=== PATIENT | female | born 1985 | race Hispanic/Latino ===

== ENCOUNTER 2016-08-02 19:06 | Emergency (ER) | payer OTHER ==
[~2016-08-02] VITALS: Ht 168.9 cm; Wt 79.5 kg
[~2016-08-02 19:06] MED LIST: OXYC-176 PO
[2016-08-02 19:13] VITALS: BP 126/81; PULSE 92; RESP 16; O2SAT 100
[2016-08-02] MEDS ORDERED: OXYC15TA45 PO (19:15)
[2016-08-02] MEDS ORDERED: 0.9% Sodium Chloride 1,000 ML IV ONE (19:39)
[2016-08-02 20:09] LABS: Mean Corpuscular Hemoglobin 30.3 pg (27.0-35.0); Mean Corpuscular Volume 90.5 fL (81-100)
--- NOTE | 2016-08-02 20:55 | ED.REPORT ---
HPI-Preg Under 20 Weeks Date of Service Aug 02, 2016 ED Provider: Alfredito Chaney MD A 31 year old A1 female with a history of elective six days ago presents to the ED complaining of abnormal vaginal bleeding. The bleeding has been occurring all day with abdominal cramping and progressively larger clots. She had been warned following her that she may experience vaginal bleeding, but was concerned because of the size of the clots. The pt was been 11 weeks at the time of her . Nursing Notes Stated Complaint: POST FEMALE SURGERY, BLEEDING AND PAIN Chief Complaint: Female Abdominal Pain Nursing Notes Reviewed: Yes Allergies: Coded Allergies: tramadol (Verified Allergy, Severe, Anaphylaxis, 08/02/16) Scheduled PRN Oxycodone (Roxicodone) 15 Mg Tablet 15 MG PO Q6H PRN PRN For Pain General Time Seen by Provider: 19:38 Chief Complaint Vaginal bleeding Hx Obtained From: Patient Arrived By: Walk-in Onset Occurred: 13 - 16 hours ago Symptom Duration: Since onset Recent Healthcare: Recent doctor visit, Recent hospitalization Similar Sx Previous: No Past Medical History Past Medical History A1 Past Surgical History 07/2016 Smoking History Unknown if Ever Smoker Social History Other Social History: Good social support Ambulatory Status Independent Review of Systems Constitutional: Denies: Fever Respiratory: Denies: Non-productive cough, Shortness of breath Cardiovascular: Denies: Chest pain GI: Reports: Abdominal pain, Denies: Diarrhea, Vomiting Female: Reports: Vaginal bleeding - abnl Musculoskeletal: Denies: Back pain, Neck pain Skin: Denies Rash Complete sys rev & neg: except as marked. Physical Exam Initial Vital Signs Vital Signs (First) Date Time Temp Pulse Resp B/P Pulse Ox O2 Delivery O2 Flow Rate FiO2 08/02/16 19:13 36.4 92 16 126/81 100 Room Air Initial VS: Reviewed General/Constitutional: Awake, Alert Abdomen: Atraumatic, Soft, Non-tender Female Genitourinary: Organ Pipe Finisher present, Atraumatic, External genitalia NL, Os closed dark brown blood in vaginal canal no clots : Exam deferred ENT: Atraumatic, Airway patent, Mucous membranes moist Respiratory / Chest: Atraumatic, Breath sounds NL, Breath sounds = bilat, No respiratory distress Cardiovascular: Heart rate NL, Regular rhythm, Heart sounds NL, No gallop, No murmurs, No rubs Back: Atraumatic, Full range of motion Neurologic: Oriented X3, Speech NL, No motor deficits, No sensory deficits Head / Eyes: Atraumatic, Normocephalic, PERRL, EOMI Neck: Atraumatic, Supple, Full range of motion Upper Extremity / MS: Atraumatic, Full range of motion Lower Extremity / Pelvis / MS: Atraumatic, Full range of motion, No swelling, Non-tender Skin: Atraumatic, Color NL, No rash, Warm, Dry Psychiatric: Affect NL, Mood NL Interpretation & Diagnostics Interpretation & Diagnostics: Pelvis US: IMPRESSION: Thickened endometrium in patient status post spontaneous 07/27/16. Thickened endometrium most likely represents intrauterine clot, however underlying retained products of conception cannot be excluded without followup studies. Recommend correlation with serial beta hCG, and short-term followup ultrasound. Dictated by: Natalia Salazar MD, PhD on 08/02/2016 at 20:56 Approved by: Natalia Salazar MD, PhD on 08/02/2016 at 20:58 Lab Results Interpretation Result Diagram: 08/02/16195508/02/161955 Test 08/02/16 19:56 08/02/16 21:23 White Blood Count 10.3th/mm3 (3.8-10.1) Red Blood Count 4.62mil/mm3 (3.90-5.20) Hemoglobin 14.0g/dL (12.0-15.6) Hematocrit 41.8% (35.0-46.0) Mean Corpuscular Volume 90.5fL (81-100) Mean Corpuscular Hemoglobin 30.3pg (27.0-35.0) Mean Corpuscular Hemoglobin Concent 33.5% (32.0-37.0) Red Cell Distribution Width 14.7% (12.3-15.4) Platelet Count 238bil/L (150-400) Sodium Level 138mEq/L (134-144) Potassium Level 3.9mEq/L (3.5-5.2) Chloride Level 99mEq/L (97-108) Carbon Dioxide Level 23mmol/L (18-29) Blood Urea Nitrogen 9mg/dL (6-20) Creatinine 0.51mg/dL (0.57-1.00) Estimat Glomerular Filtration Rate 204mL/min (>59) Glucose Level 101mg/dL (60-99) Calcium Level 9.2mg/dL (8.5-10.1) Total Bilirubin 0.7mg/dL (0.0-1.2) Aspartate Amino Transf (AST/SGOT) 42U/L (0-50) Alanine Aminotransferase (ALT/SGPT) 51U/L (0-32) Alkaline Phosphatase 68U/L (25-150) Total Protein 7.4g/dL (6.4-8.4) Albumin 4.5g/dL (3.4-5.0) HCG Beta Subunit 1597mIU/mL Hold Garcia Top Tube Received (Received) Urine Color Yellow (YELLOW) Urine Appearance Clear (CLEAR,HAZY) Urine pH 8.0 (5.0-8.0) Urine Specific [place] 1.015 (1.003-1.035) Urine Protein Negativemg/dL (NEG,TRACE) Urine Glucose (UA) Negativemg/dL (NEGATIVE) Urine Ketones Negativemg/dL (NEGATIVE) Urine Occult Blood Large (NEGATIVE) Urine Nitrite Negative (NEGATIVE) Urine Bilirubin Negative (NEGATIVE) Urine Urobilinogen Normalmg/dL (NORMAL) Urine Leukocyte Esterase Negative (NEGATIVE) Urine RBC 11-50/hpf (0-2) Urine WBC 0-5/hpf (0-5) Urine Epithelial Cells None/hpf (NONE-MOD) Urine Crystals None seen (NONE SEEN) Urine Bacteria None/hpf (NONE-FEW) Urine Hyaline Casts None/lpf (NONE) Urine Granular Casts None seen (NONE SEEN) Urine Waxy Casts None seen (NONE SEEN) Urine Red Blood Cell Casts None seen (NONE SEEN) Urine White Blood Cell Casts None seen (NONE SEEN) Urine Mucus None seen (None Seen) Urine Trichomonas None seen (NONE SEEN) Urine Yeast None (NONE SEEN) Urinalysis Comment None Urine Culture Reflexed Not indicated Re-Eval/Medical Decision Med Decision/Clinical Course Patient is a 31-year-old female in generally good health recently status post elective who presents to the emergency department because of passing clotted bloody material from her vagina throughout the day today. Upon arrival she is hemodynamically stable and asymptomatic. Pelvic examination reveals closed cervix with brownish old-appearing blood in the vaginal canal. Ultrasound demonstrates thickened endometrium without any intrauterine products of conception. Laboratory studies notable as below: cbc unremarkable but borderline leukocytosis at 10.3 cmp unremarkable hcg 1597, RH positive Here in the emergency department the patient remained afebrile and hemodynamically stable. She had no foul-smelling lochia suggestive of endometritis and her abdominal examination was benign. She remained hemodynamically stable and comfortable without any active or bright red bleeding. I feel that she is appropriate for discharge home. She will return to the emergency room right away if she develops abdominal pain, fevers, increased bleeding or failure of her bleeding to resolve. She will call tomorrow to arrange for follow-up with her [facility]. Follow-up and return precautions were reviewed in detail and she was discharged in good condition. Re-Evaluation/Progress : Time of Eval: 20:49 Patient Status: Condition improved Re-Evaluation/Progress Note: Pt rechecked, who is resting. Pelvic exam is performed. The plan for discharge is discussed. The pt understands and agrees with the plan. All questions are addressed at this time. Counseled Regarding: Diagnosis, Lab results, Need for follow-up, When/why to return to ED Discharge & Departure Primary Impression: Vaginal bleeding Additional Impression: Status post elective Disposition: Home Discharge Condition All VS Reviewed: Yes Condition: Stable Additional Instructions: Your bleeding is likely a normal side effect of your recent . Call tomorrow to arrange an appointment with your OBGYN or the clinic. Return to the emergency department if you develop any new or worsening symptoms including worsening bleeding or pain. Referrals: [facility] Favian Attestation Portions of this note were transcribed by Nancy Jeffery. I, Dr. Chaney personally performed the history, physical exam and medical decision-making; I reviewed and confirmed the accuracy of the information in the transcribed note. Signed by: Favian Goodwin, 08/02/2016 and 2233. copies to: [facility] Alfredito Chaney MD Aug 02, 2016 20:55 NANCY JEFFERY Aug 02, 2016 20:59
--- NOTE | 2016-08-02 21:00 | DRSVH ---
PROCEDURE: US PELVIC SONOGRAM + TRANSVAGINAL SONOGRAM INDICATIONS: vag bleed, clots, recent TECHNIQUE: Real-time scanning was performed of the pelvic organs, with image documentation. Additional endovagi nal scanning was necessary due to incomplete visualization of the adnexal and endometrial structures by transabdominal scanning. COMPARISON: None. FINDINGS: Transabdominal scanning: Limited scanning through the kidneys shows no hydronephrosis. No pathologi c free abdominal or pelvic fluid. Endovaginal scanning: Uterus: Uterus is normal in size at 10.7 x 6.5 x 7.7 cm. The endometrium measures 23.3 mm in combin ed thickness. No definite vascularity identified within thickened endometrium. Ovaries: Right adnexa measures 2.3 x 1.6 x 2.5 cm. Left adnexa measures 1.6 x 1.2 x 1.9 cm. The ad nexa sonographically normal. IMPRESSION: Thickened endometrium in patient status post spontaneous 07/27/16. Thickened end ometrium most likely represents intrauterine clot, however underlying retained products of conception cannot be excluded without followup studies. Recommend correlation with serial beta hCG, and short- term followup ultrasound. Dictated by: Natalia Salazar MD, PhD on 08/02/2016 at 20:56 Approved by: Natalia Salazar MD, PhD on 08/02/2016 at 20:58
[2016-08-02 21:11] VITALS: BP 126/71; PULSE 77; RESP 24; O2SAT 100
[2016-08-02 21:40] LABS: APPEARANCE,URINE CLEAR (CLEAR,HAZY); COLOR,URINE YELLOW (YELLOW); OCCULT BLOOD,URINE LARGE (NEGATIVE); UROBILINOGEN,URINE NORMAL (NORMAL)
== END 2016-08-02 21:12 | disposition home or self-care (01) ==
LOC: SED 19:06
DX: O04.6 Delayed or excessive hemorrhage following (induced) termination of pregnancy (principal); Z88.8 Allergy status to other drugs, medicaments and biological substances
CPT/HCPCS: 36415; 76830; 76856; 80053; 81000; 84702; 85027; 96360; 99285; J7030